=== PATIENT | female | born 1955 | race Caucasian/White ===

== ENCOUNTER → 2022-09-19 10:05 | Outpatient (CLI) | payer MEDICARE, SELFPAY ==
--- NOTE | ~2022-09-19 | DEXA_ITS ---
Bone Density Report Name: RACHEAL LAN Age: 67 Sex: Female Ethnicity: White Date of : 1955 Indication: osteopenia; prior fracture; hysterectomy; postmenopausal Referring Provider: Ty, Kolby Salinas Study: Bone densitometry was performed. Exam Date: September 19, 2022 Accession number: [id number] Bone Density: Region BMD T-score Z-score Classification AP Spine (L1-L4) 0.758 -2.6 -0.7 Osteoporosis Femoral Neck (Left) 0.648 -1.8 -0.2 Osteopenia Total Hip (Left) 0.789 -1.3 0.1 Osteopenia Femoral Neck (Right) 0.641 -1.9 -0.2 Osteopenia Total Hip (Right) 0.742 -1.6 -0.3 Osteopenia Total Hip Mean 0.765 -1.5 -0.1 Osteopenia World Health Organization criteria for BMD impression classify patients as: Normal (T-score at or above -1.0), Osteopenia (T-score between -1.0 and -2.5), or Osteoporosis (T-score at or below -2.5). 10-year Fracture Risk: FRAX not reported because: Some T-score for Spine Total or Hip Total or Femoral Neck at or below -2.5 Prior hip or vertebral fracture Previous Exams: Region Exam Age BMD T-score BMD Change BMD Change Date g/cm2 vs Baseline vs Previous AP Spine(L1-L4) 09/19/2022 67 0.758 -2.6 -0.126* -0.057* 09/21/2016 61 0.815 -2.1 -0.070* -0.048* 08/28/2012 57 0.863 -1.7 -0.021 0.001 08/03/2010 55 0.862 -1.7 -0.022 0.015 03/08/2009 53 0.847 -1.8 -0.037* -0.037* 03/06/2008 52 0.884 -1.5 Total Hip(Left) 09/19/2022 67 0.789 -1.3 -0.008 -0.016 09/21/2016 61 0.804 -1.1 0.007 -0.004 08/28/2012 57 0.808 -1.1 0.011 0.003 08/03/2010 55 0.804 -1.1 0.007 0.004 03/08/2009 53 0.800 -1.2 0.003 0.003 03/06/2008 52 0.797 -1.2 Total Hip(Right) 09/19/2022 67 0.742 -1.6 -0.037* 0.004 09/21/2016 61 0.738 -1.7 -0.041* 0.002 08/28/2012 57 0.736 -1.7 -0.044* -0.030* 08/03/2010 55 0.766 -1.4 -0.013 -0.013 03/08/2009 53 0.779 -1.3 0.000 0.000 03/06/2008 52 0.779 -1.3 *Denotes significance at 95% confidence level, LSC for AP Spine = 0.022 g/cm2, LSC for Total Hip = 0.027 g/cm2 Clinical Information Provided by Patient: Have had a previous hip or vertebral fracture Has had a low trauma fracture Has used the following medications: Calcium, vit D included in Ca
--- NOTE | ~2022-09-19 | MM_ITS ---
EXAMINATION: MM screening [facility] BI w demond HISTORY: Screening mammogram TECHNIQUE: Craniocaudal and mediolateral oblique 3-D tomosynthesis images were obtained and synthetic 2-D images were generated. CAD analysis was submitted and interpreted. COMPARISON: 10/25/2018, 10/22/2017, 09/21/2016 BREAST PARENCHYMAL COMPOSITION: There are scattered areas of fibroglandular density. FINDINGS: No suspicious mass, calcification, or architectural distortion are identified in either sarina ast to suggest malignancy. There has been no suspicious interval change. IMPRESSION: 1. No mammographic evidence of malignancy. 2. Recommend routine screening mammography in one year. BI-RADS Category 1: Negative Reviewed, dictated and finalized at location A.
== END ==
PROVIDERS: PCP Internal Medicine; Visit Provider Internal Medicine
DX: Z12.31 Encounter for screening mammogram for malignant neoplasm of breast (principal); Z78.0 Asymptomatic menopausal state; M85.852 Other specified disorders of bone density and structure, left thigh; M85.851 Other specified disorders of bone density and structure, right thigh; M81.0 Age-related osteoporosis without current pathological fracture
CPT/HCPCS: 77063; 77067; 77080

== ENCOUNTER 2023-11-14 10:04 | Outpatient (CLI) | payer MEDICARE, SELFPAY ==
--- NOTE | ~2023-11-14 | MM_ITS ---
EXAMINATION: MM screening [facility] w dem[facility] HISTORY: Screening TECHNIQUE: Craniocaudal and mediolateral oblique 3-D tomosynthesis images were obtained and synthetic 2-D images were generated. CAD analysis was submitted and interpreted. COMPARISON: Comparison to multiple prior studies sequentially, with oldest reviewed study dated 09/21. BREAST PARENCHYMAL COMPOSITION: Dense: The breasts are heterogeneously dense, which may obscure small masses FINDINGS: There is no evidence of suspicious mass, calcification, or architectural distortion to sugg est malignancy in either breast. There has been no suspicious interval change. IMPRESSION: 1. No mammographic evidence of malignancy. 2. Recommend routine screening mammography in one year. BI-RADS Category 1: Negative Reviewed, dictated and finalized at location B.
== END 2023-11-14 10:05 ==
LOC: MICIMG 10:05
PROVIDERS: PCP Internal Medicine; Visit Provider Internal Medicine
DX: Z12.31 Encounter for screening mammogram for malignant neoplasm of breast (principal)
CPT/HCPCS: 77063; 77067

== ENCOUNTER 2024-05-11 10:22 | Emergency (ER) | payer MEDICARE, SELFPAY ==
[2024-05-11 10:47] VITALS: BP 103/49; PULSE 73; RESP 16; TEMP 36.5; O2SAT 97
--- NOTE | 2024-05-11 11:12 | ED.BACK ---
HPI - Back Pain/Injury General Chief Complaint: Back Pain/Injury Stated Complaint: Lower Back Pain Source: patient Mode of arrival: ambulatory Limitations: no limitations History of Present Illness HPI Narrative: 60-year-old female presented for complaint of right lower back pain worsening since yesterday afternoon. Endorses pain is described as pulling and sharp, worse when bending or standing. She started taking Lyrica which she had left over from recent neck pain. Also using a lidocaine patch and taking Tylenol or ibuprofen. Denies pain radiating into the hips or legs, numbness, tingling, weakness of the lower extremities, or change in gait, saddle paresthesia or loss of bowel or bladder. Related Data Home Medications Medication Instructions Recorded Confirmed gabapentin 300 mg capsule 300 mg PO DIRECTED 05/11/24 05/11/24 pregabalin 75 mg capsule 75 mg PO BID 05/11/24 05/11/24 Allergies Allergy/AdvReac Type Severity Reaction Status Date / Time No Known Allergies Allergy Verified 05/11/24 11:12 Review of Systems Review of Systems: CONSTITUTIONAL: Denies body aches, fever, chills EYES: Denies visual changes CARDIOVASCULAR: Denies chest pain, palpitations, or edema. RESPIRATORY: Denies cough or dyspnea. GASTROINTESTINAL: Denies abdominal pain, nausea, vomiting, or diarrhea. SKIN: Denies rash, itching, or wounds. MUSCULOSKELETAL: reports back pain NEUROLOGIC: Denies headache, numbness, tingling, or weakness. All systems reviewed & are unremarkable except as noted in HPI and below PMFSH Comments At time of signature, I have reviewed and agree with nursing past medical, surgical, social and family history unless otherwise noted. Please see nursing chart for further information. There is no relevant family history pertinent to the presenting complaint Exam Narrative: GENERAL: Appears in pain, no distress CHEST: Speaks in full sentences. No respiratory distress. HEART: Regular rate and rhythm. Normal and equal peripheral pulses. MUSC: No Vertebral point tenderness. Right lower back slightly tender with palpation. BLEs with normal strength and sensation. Slightly limited range of motion to low back due to endorses pain with movement. No rash or bruising, No open wounds, or obvious deformity; alignment normal, pulse palpable and equal bilaterally, skin warm, dry, pink. Capillary refill less than 3 seconds. Gait steady with walker SKIN: Warm, dry, no rash. NEURO: Alert and oriented x3. Back/Spine/Pelvis: Back/spine/pelvis image: 1. location of pain Course Course Emergency Course: Patient is aware of diagnosis, understands and agrees to treatment plan. Anticipatory guidance given. Patient agrees to follow-up as directed and is aware of reasons to seek care at the emergency department. Portions of this record may have been created with voice recognition software Level of Care: Express Care Visit Vital Signs Vital signs: Vital Signs Temperature 97.7 F 05/11/24 10:47 Pulse Rate 73 05/11/24 10:47 Respiratory Rate 16 05/11/24 10:47 Blood Pressure 103/49 L 05/11/24 10:47 Pulse Oximetry 97 05/11/24 10:47 Temperature 97.7 F 05/11/24 10:47 Pulse Rate 73 05/11/24 10:47 Respiratory Rate 16 05/11/24 10:47 Blood Pressure 103/49 L 05/11/24 10:47 Pulse Oximetry 97 05/11/24 10:47 Reviewed MDM - Back Pain/Injury MDM Narrative Medical decision making narrative: Discussed physical exam findings and reviewed possible etiologies at length. Reviewed prescriptions, patient will be cautious while taking [place] and a muscle relaxer. Advised supportive measures and s/s to go to the ER. Pt is stable and appropriate for outpt treatment and follow up with pcp tomorrow. Differential Diagnosis Differential diagnosis: Likely lumbar radiculopathy, sciatica, strain of lumbar region, renal colic, pyelonephritis and discitis Discharge Plan Discharge Clinical Impression: Low back pain Patient Disposition: Home, Self-Care Condition: Stable Instructions: Acute Low Back Pain (ED) Additional Instructions: Please follow up with your Primary Care Doctor within 48-72 hours - call for an appointment. Avoid lifting. pushing. pulling, or anything that worsens the pain. Take Motrin 600 every 6-8 hours with food for the next 2-3 days, along with Tylenol 1000mg every 8 hours Continue your lyrica as previously prescribed Take muscle relaxers every 8 hours as needed for muscle spasm- do not drive or make any important decisions while on this medication for it can make you drowsy. *Especially when taking Lyrica Over the counter pain cream like icy/hot or biofreeze, or Salon pas/lidocaine 4% patch. You may apply heat or cold to the area as needed. Go to the ER If you experience any worsening pain, swelling, numbness, weakness, problems with bladder or bowel function, weakness or loss of feeling in one or both of your legs, or any other serious concerns. Prescriptions: New cyclobenzaprine 5 mg tablet 5 mg PO TID PRN (Reason: muscle spasm) Qty: 10 0RF No Action gabapentin 300 mg capsule 300 mg PO DIRECTED pregabalin 75 mg capsule 75 mg PO BID Follow-up/Referrals: Ty,Kolby Salinas MD [Primary Care Provider] - Time of Disposition: 11:23
== END 2024-05-11 11:27 | disposition home or self-care (01) ==
PROVIDERS: Emergency Provider Nurse Practitioner Family; PCP Internal Medicine
DX: M54.50 Low back pain, unspecified (principal); M81.0 Age-related osteoporosis without current pathological fracture
CPT/HCPCS: 99213; G0463

== ENCOUNTER 2024-12-25 07:56 | Outpatient (CLI) | payer MEDICARE, SELFPAY ==
--- NOTE | ~2024-12-25 | DEXA_ITS ---
Bone Density Report Name: RACHEAL LAN Age: 69 Sex: Female Ethnicity: White Date of : 1955 Indication: postmenopausal osteoporosis; monitoring treatment; cancer; hysterectomy; Referring Provider: Ty, Kolby Salinas Study: Bone densitometry was performed. Exam Date: December 25, 2024 Accession number: [id number] Bone Density: Region BMD T-score Z-score Classification AP Spine(L1-L4) 0.811 -2.1 -0.1 Osteopenia Femoral Neck (Left) 0.646 -1.8 -0.1 Osteopenia Total Hip (Left) 0.799 -1.2 0.3 Osteopenia Femoral Neck (Right) 0.710 -1.3 0.5 Osteopenia Total Hip (Right) 0.782 -1.3 0.2 Osteopenia Total Hip Mean 0.790 -1.3 0.3 Osteopenia World Health Organization criteria for BMD impression classify patients as: Normal (T-score at or above -1.0), Osteopenia (T-score between -1.0 and -2.5), or Osteoporosis (T-score at or below -2.5). 10-year Fracture Risk: FRAX not reported because: Treated for osteoporosis Previous Exams: -- Region Exam Age BMD T-score BMD Change BMD Change Date g/cm2 vs Baseline vs Previous -- AP Spine (L1-L4) 12/25/2024 69 0.811 -2.1 -8.3%* 7.0%* 09/19/2022 67 0.758 -2.6 -14.3%* -6.9%* 09/21/2016 61 0.815 -2.1 -7.9%* -5.6%* 08/28/2012 57 0.863 -1.7 -2.4% 0.1% 08/03/2010 55 0.862 -1.7 -2.5% 1.8% 03/08/2009 53 0.847 -1.8 -4.2%* -4.2%* 03/06/2008 52 0.884 -1.5 Total Hip(Left) 12/25/2024 69 0.799 -1.2 0.2% 1.2% 09/19/2022 67 0.789 -1.3 -1.0% -1.9% 09/21/2016 61 0.804 -1.1 0.9% -0.4% 08/28/2012 57 0.808 -1.1 1.4% 0.4% 08/03/2010 55 0.804 -1.1 0.9% 0.6% 03/08/2009 53 0.800 -1.2 0.4% 0.4% 03/06/2008 52 0.797 -1.2 Total Hip(Right) 12/25/2024 69 0.782 -1.3 0.3% 5.4%* 09/19/2022 67 0.742 -1.6 -4.8%* 0.5% 09/21/2016 61 0.738 -1.7 -5.3%* 0.3% 08/28/2012 57 0.736 -1.7 -5.6%* -4.0%* 08/03/2010 55 0.766 -1.4 -1.7% -1.7% 03/08/2009 53 0.779 -1.3 0.0% 0.0% 03/06/2008 52 0.779 -1.3 -- *Denotes significance at 95% confidence level, LSC for AP Spine = 0.022 g/cm2, LSC for Total Hip = 0.027 g/cm2 Clinical Information Provided by Patient: Is being treated for osteoporosis Has used the following medications: Prolia (i.e. denosumab), Vitamin D, Calcium Has the following medical conditions: Cancer, Hysterectomy Patient maximum height was 60 Menopause Age: 47 No regular weight bearing exercise Drinks caffeinated beverages Onset of menses at age 17 Number of children 2 Impression: The patient has low bone mass, based on the Total Spine T-score. No significant bone loss was observed. Discussion: PATIENT UNDER TREATMENT WITH NO SIGNIFICANT BMD LOSS SINCE LAST EXAM. In an untreated patient, BMD typically declines with age. A lack of decline or gain is usually a sign that treatment is efficacious and fracture risk is reduced. It is important to ask patients whether they are taking their medications and to encourage continued and appropriate compliance with their osteoporosis therapies to reduce fracture risk. It is also important to review their risk factors and encourage appropriate calcium and vitamin D intakes, exercise, fall prevention and other lifestyle measures. Follow-Up: Consider a repeat BMD and Vertebral Fracture Assessment (VFA) exam in 2 years or sooner if medically necessary, to reassess this patient's status. Reported by: ROXANA on 12/25/2024 8:22:00 AM. Reviewed, dictated and finalized at location A.
== END 2024-12-25 07:57 | disposition home or self-care (01) ==
LOC: MICIMG 07:57
PROVIDERS: PCP Internal Medicine; Visit Provider Internal Medicine
DX: M85.89 Other specified disorders of bone density and structure, multiple sites (principal); Z78.0 Asymptomatic menopausal state
CPT/HCPCS: 77080

== ENCOUNTER 2025-02-27 12:31 | Outpatient (CLI) | payer MEDICARE, SELFPAY ==
--- NOTE | ~2025-02-27 | MM_ITS ---
EXAMINATION: MM screening [facility] BI w demond HISTORY: Screening TECHNIQUE: Craniocaudal and mediolateral oblique 3-D tomosynthesis images were obtained and synthetic 2-D images were generated. CAD analysis was submitted and interpreted. COMPARISON: Comparison to multiple prior studies sequentially, with oldest reviewed study dated 09/21/2016. BREAST PARENCHYMAL COMPOSITION: The breasts are heterogeneously dense, which may obscure small masses. FINDINGS: There is no evidence of suspicious mass, calcification, or architectural distortion to suggest malignancy in either breast. There has been no suspicious interval change. IMPRESSION: 1. No mammographic evidence of malignancy. 2. Recommend routine screening mammography in one year. BI-RADS Category 1: Negative Reviewed, dictated and finalized at location B.
== END 2025-02-27 12:32 | disposition home or self-care (01) ==
LOC: MICIMG 12:32
PROVIDERS: PCP Internal Medicine; Visit Provider Internal Medicine
DX: Z12.31 Encounter for screening mammogram for malignant neoplasm of breast (principal)
CPT/HCPCS: 77063; 77067